=== PATIENT | female | born 1980 | race Two or more races ===

== ENCOUNTER 2025-10-15 11:27 | Inpatient (IN) | payer BC, OTHER ==
[~2025-10-15] VITALS: Ht 154.9 cm; Wt 69.7 kg
[2025-10-15] VITALS (11 sets, daily range): BP systolic 88–113; BP diastolic 48–76; PULSE 74–92; RESP 14–21; TEMP 97.3–98.8; O2SAT 99–100
--- NOTE | 2025-10-15 11:48 | ED.PDOC ---
History of Present Illness HPI Comments 45 y/o F, presents to the ED for CC of abnormal labs. Patient states, she received a critical lab for low Hbg level of 5.7. Patient reports, associated symptoms of weakness [id number]. Patient further comments, on LMP to have been [id number] ago. Patient denies dizziness, blurred vision, or headache with aura. No other symptoms or modifying factors are present at this time. 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 Family History Family History: Unknown Social History Smoker: Non-Smoker Alcohol: Denies ETOH Use Drugs: Denies Drug Use Lives In: Home Constitutional: reports: weakness; denies: chills, diaphoresis, fatigue, fever, malaise, sweats, others EENTM: denies: blurred vision, double vision, ear bleeding, ear discharge, ear drainage, ear pain, ear ringing, eye pain, eye redness, hearing loss, mouth pain, mouth swelling, nasal discharge, nose bleeding, nose congestion, nose pain, photophobia, tearing, throat pain, throat swelling, voice changes, others Respiratory: denies: cough, hemoptysis, orthopnea, SOB at rest, shortness of breath, SOB with excertion, stridor, wheezing, others Cardiovascular: denies: chest pain, dizzy spells, diaphoresis, Dyspnea on exertion, edema, irregular heart beat, left arm pain, lightheadedness, palpitations, PND, syncope, others Gastrointestinal: denies: abdomen distended, abdominal pain, blood streaked bowels, constipated, diarrhea, dysphagia, difficulty swallowing, hematemesis, melena, nausea, poor appetite, poor fluid intake, rectal bleeding, rectal pain, vomiting, others Genitourinary: denies: abnormal vagina bleeding, burning, dyspareunia, dysuria, flank pain, frequency, hematuria, incontinence, pain, , vagina discharge, urgency, others Neurological: denies: dizziness, fainting, headache, left sided numbness, left sided weakness, numbness, paresthesia, pre-existing deficit, right sided nu mbness, right sided weakness, seizure, speech problems, tingling, tremors, weakness, others Musculoskeletal: denies: back pain, gout, joint pain, joint swelling, muscle pain, muscle stiffness, neck pain, others Integumetry: denies: bruises, change in color, change in hair/nails, dryness, laceration, lesions, lumps, rash, wounds, others Allergic/Immunocompromised: denies: Difficulty Healing, Frequent Infections, Hives, Itching, others Hematologic/Lymphatic: denies: anemia, blood clots, easy bleeding, easy bruising, swollen glands, others Endocrine: denies: excessive hunger, excessive sweating, excessive thirst, excessive urination, flushing, intolerance to cold, intolerance to heat, unexplained weight gain, unexplained weight loss, others Psychiatric: denies: anxiety, bipolar disorder, depression, hopeless, panic disorder, schizophrenia, sleepless, suicidal, others All Other Systems: Reviewed and Negative Was a procedure done? Was a procedure done?: No Differential Dx Considerations may include: anemia, iron deficiency X-Ray, Labs, Meds, VS Vital Signs Date Time Temp Pulse Resp B/P (MAP) Pulse Ox O2 Delivery O2 Flow Rate FiO2 10/15/25 11:29 97.5 100 18 118/99 98 97.5 Time of 1ST Reevaluation: 12:15 Reevaluation 1ST: Unchanged Patient Education/Counseling: Diagnosis, Treatment Family Education/Counseling: No Family Present SEPSIS Sepsis Screen Date sepsis recognized/suspect: Oct 15, 2025 Time Sepsis recognized/suspect: 1130 Recent Procedure: No On Antibiotic Therapy: No Respiratory Rate >20: No Heart Rate >90: Yes Temp<36 C (96.8 F) or >38.3 C: No SBP <90 or MAP <65 mmHG: No New Acute Mental Status Change: No Is the patient on CPAP, BIPAP,: No Vital Signs Date Time Temp Pulse Resp B/P (MAP) Pulse Ox O2 Delivery O2 Flow Rate FiO2 10/15/25 11:29 97.5 100 18 118/99 98 97.5 Critical Care Note Critical Care Time?: No Stability Stability form required: No Heart Score Heart Score: Heart Score Response (Comments) Value History N/A 0 EKG N/A 0 Age N/A 0 Risk Factors N/A 0 Troponin N/A 0 Total 0 I personally scribed for LEON BARILLAS MD ([email or web address]) on 10/15/25 at 11:48. Electronically submitted by Sol Akhtar ([email or web address]). I personally scribed for LEON BARILLAS MD ([email or web address]) on 10/15/25 at 11:53. Electronically submitted by Sol Akhtar ([email or web address]). LEON BARILLAS MD Oct 15, 2025 11:48
--- NOTE | 2025-10-15 12:18 | ED.PDOC ---
History of Present Illness HPI Comments This is a 45-year-old woman who presented to the ED with the chief complaint of abnormal labs. She mentioned she received a lab for low hemoglobin level of 5.7, which was drawn yesterday at her PCPs office. The patient reports she has been having menstrual bleeding since the last 1 month with passage of clots, and has had to use 6-7 sanitary pads every day. This has been associated with nausea, dizziness and weakness. She denies any headache, blurred vision or loss of consciousness. 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 Family History Family History: Unknown Social History Smoker: Non-Smoker Alcohol: Denies ETOH Use Drugs: Denies Drug Use Lives In: Home Constitutional: reports: fatigue, malaise, weakness Genitourinary: reports: abnormal vagina bleeding Physical Exam General Appearance: Normal HEENT: Normal ENT Inspection, Pale Conjuntivae (L), Pale Conjuntivae (R) Neck: Normal, Normal Inspection Respiratory: Normal Breath Sounds Cardiovascular: No Edema, No Murmur, Normal Peripheral Pulses Breast Exam: Normal Gastrointestinal: Tenderness (left lower quadrant) Genitalia: Deferred Pelvic: Deferred Rectal: None Extremities: Normal inspection, Normal range of motion, No pedal edema Neurologic: No Motor Deficits, Normal Mood, No Sensory Deficits Cerebellar Function: Normal Reflexes: Normal Skin: Pallor Lymphatic: No Adenopathy Was a procedure done? Was a procedure done?: No Differential Dx Considerations may include: fibroids, endometriosis, endometrial polyps X-Ray, Labs, Meds, VS Vital Signs Date Time Temp Pulse Resp B/P (MAP) Pulse Ox O2 Delivery O2 Flow Rate FiO2 10/15/25 11:29 97.5 100 18 118/99 98 97.5 Time of 1ST Reevaluation: 12:15 Reevaluation 1ST: Unchanged Patient Education/Counseling: Diagnosis, Treatment, Prognosis Family Education/Counseling: No Family Present SEPSIS Sepsis Screen Date sepsis recognized/suspect: Oct 15, 2025 Time Sepsis recognized/suspect: 1130 Recent Procedure: No On Antibiotic Therapy: No Respiratory Rate >20: No Heart Rate >90: Yes Temp<36 C (96.8 F) or >38.3 C: No SBP <90 or MAP <65 mmHG: No New Acute Mental Status Change: No Is the patient on CPAP, BIPAP,: No Physician Orders Complete Blood Count (10/15/25 12:04) PTPTT (10/15/25 12:04) Type And Screen (10/15/25 12:04) Heplock Iv (10/15/25 ) Pelvic (10/15/25 12:04) Test, Urine (10/15/25 12:04) Vital Signs Date Time Temp Pulse Resp B/P (MAP) Pulse Ox O2 Delivery O2 Flow Rate FiO2 10/15/25 11:29 97.5 100 18 118/99 98 97.5 Departure 1 Departure Time of Disposition: 12:15 Impression: Primary Impression: Fibroids Additional Impressions: Abnormal uterine bleeding due to endometrial polyp Endometriosis Disposition: 09 ADMITTED INPATIENT Condition: Stable Critical Care Note Critical Care Time?: No Stability Stability form required: RONALDO Spicer RESIDENT Oct 15, 2025 12:18
[2025-10-15 12:43] LABS: Hematocrit 18.7 % (36.0-46.0); Mean Corpuscular Hemoglobin 20.7 pg (28.0-32.0); Mean Corpuscular Volume 66.6 fL (80.0-100.0); Nucleated Red Blood Cells % 0.1 %
[2025-10-15 12:45] LABS: Hemoglobin 5.8 g/dL (12.2-16.2)
[2025-10-15 12:53] LABS: INR 0.97 (0.9-1.15); Partial Thromboplastin Time 20.5 SEC (24.5-34.5); Prothrombin Time 10.3 sec (9.3-11.8)
--- NOTE | 2025-10-15 13:22 | DVH ---
EXAM DESCRIPTION: TRANSABDOMINAL PELVIC ULTRASOUND CLINICAL HISTORY: menstrual bleeding for 1 month COMPARISON: None TECHNIQUE: Transabdominal ultrasound examination of the pelvis was performed. LMP: 09/15/25 FINDINGS: Uterus: 10.4 X 6.2 X 6.9 Cm. A few uterine fibroids measuring up to 3.3 cm. Endometrial echo complex: 0.8 cm. Right ovary: 3.0 x 2.1 X 2.2 Cm. No right adnexal masses. Normal Doppler flow in the right ovary. Left ovary: 4.9 X 2.8 X 4.5 Cm. 3.7 cm simple left ovarian cyst. Normal Doppler flow on the left ovary. Intrapelvic free fluid: None. IMPRESSION: 1. Uterine fibroids measuring up to 3.3 cm. 2. A 3.7 cm simple left ovarian cyst.
[2025-10-15] MEDS ORDERED: ACETAMINOPHEN 325 MG TAB PO PRN (17:30)
[2025-10-15] MEDS ORDERED: ONDANSETRON HCL 4 MG/2 ML VIAL IV PRN (17:30)
[2025-10-15 17:39] LABS: Hemoglobin 7.5 g/dL (12.2-16.2)
[2025-10-15 17:41] LABS: Hematocrit 23.9 % (36.0-46.0)
--- NOTE | 2025-10-15 17:48 | DVHHP2 ---
History of Present Illness Reason for Visit: Abnormal labs History of Present Illness 45-year-old female presents for evaluation of abnormal blood work. Patient was contacted by her primary care provider and advised to present to the emergency department due to an abnormally low hemoglobin level. Patient reports a one month history of having heavy menstrual bleeding she states using a proximally 6-7 sedentary pads per day. She states that two days ago she was seen by her primary care provider and was given "medication" to slow the bleeding. She reports noticing decrease in bleed since yesterday. Reports dizziness, shortness for breath and extreme fatigue. Past Medical History Denies Past Surgical History Tubal ligation Family History Noncontributory Smoke: No ALCOHOL: none Drugs: None Lives: with Family Review of Systems Review of Systems Review of systems are currently negative otherwise addressed in HPI. Allergies: Coded Allergies: NO KNOWN ALLERGIES (Unverified , 10/15/25) Medications Current Medications Medications Dose Ordered Sig/Regina Route Start Time Stop Time Status Last Admin Dose Admin Ondansetron HCl 4 mg Q4HP PRN IV 10/15/25 17:30 Acetaminophen 650 mg Q6HP PRN PO 10/15/25 17:30 Exam Vital Signs Vital Signs Date Time Temp Pulse Resp B/P (MAP) Pulse Ox O2 Delivery O2 Flow Rate FiO2 10/15/25 17:30 98.0 83 20 96/53 (67) 100 98.0 10/15/25 13:20 Room Air* 0 21 Exam Gen: 45-year-old female in mild distress Skin: Warm, dry, normal color and texture, no rash. HEENT: Normocephalic atraumatic, mucous membranes moist and pink. Neck: Cervical and supraclavicular nodes normal without enlargement, trachea is midline, thyroid gland is normal without masses. Pulmonary: Clear to auscultation and percussion bilaterally. Cardiac: Regular rate and rhythm. No murmur Abdomen: Soft, nontender, nondistended, bowel sounds present all 4 quadrants, no guarding, no rigidity, no organomegaly. Extremities: No cyanosis, clubbing, no edema Neuro: Cranial nerves II through XII grossly intact, normal affect and speech, no focal motor deficits. Labs/Xrays ORDERING PHYSICIAN: RONALDO JENKINS RESIDENT PROCEDURE(s): PELUS - PELVIC REASON: menstrual bleeding for 1 month ORDER NUMBER(s): [id number], ACCESSION NUMBER(s): [id number] EXAM DESCRIPTION: TRANSABDOMINAL PELVIC ULTRASOUND CLINICAL HISTORY: menstrual bleeding for 1 month COMPARISON: None TECHNIQUE: Transabdominal ultrasound examination of the pelvis was performed. LMP: 09/15/25 FINDINGS: Uterus: 10.4 X 6.2 X 6.9 Cm. A few uterine fibroids measuring up to 3.3 cm. Endometrial echo complex: 0.8 cm. Right ovary: 3.0 x 2.1 X 2.2 Cm. No right adnexal masses. Normal Doppler flow in the right ovary. Left ovary: 4.9 X 2.8 X 4.5 Cm. 3.7 cm simple left ovarian cyst. Normal Doppler flow on the left ovary. Intrapelvic free fluid: None. IMPRESSION: 1. Uterine fibroids measuring up to 3.3 cm. 2. A 3.7 cm simple left ovarian cyst. Labs Test 10/15/25 17:23 10/15/25 12:29 Range/Units Hemoglobin 7.5 #L 12.2-16.2 g/dL Hematocrit 23.9 #L 36.0-46.0 % White Blood Count 6.0 4.4-10.8 10^3/uL Red Blood Count 2.81 L 4.0-5.20 10^6/uL Mean Corpuscular Volume 66.6 L 80.0-100.0 fL Mean Corpuscular Hemoglobin 20.7 L 28.0-32.0 pg Mean Corpuscular Hemoglobin Concent 31.1 L 32.0-36.0 g/dL Red Cell Distribution Width 17.3 H 11.8-14.3 % Platelet Count 503 H 140-450 10^3/uL Mean Platelet Volume 6.8 L 6.9-10.8 fL Neutrophils (%) (Auto) 68.6 37.0-80.0 % Lymphocytes (%) (Auto) 21.4 10.0-50.0 % Monocytes (%) (Auto) 7.9 0.0-12.0 % Eosinophils (%) (Auto) 1.0 0.0-7.0 % Basophils (%) (Auto) 1.1 0.0-2.0 % Neutrophils # (Auto) 4.1 1.6-8.6 10 ^3/uL Lymphocytes # (Auto) 1.3 0.4-5.4 10 ^3/uL Monocytes # (Auto) 0.5 0-1.3 10 ^3/uL Eosinophils # (Auto) 0.1 0-0.8 10 ^3/uL Basophils # (Auto) 0.1 0-0.2 10 ^3/uL Nucleated Red Blood Cells 0.1 % Prothrombin Time 10.3 9.3-11.8 sec Prothrombin Time INR 0.97 0.9-1.15 Activated Partial Thromboplast Time 20.5 L 24.5-34.5 SEC SEPSIS Sepsis Screen Date sepsis recognized/suspect: Oct 15, 2025 Time Sepsis recognized/suspect: 1319 Recent Procedure: No On Antibiotic Therapy: No Respiratory Rate >20: No Heart Rate >90: No Temp<36 C (96.8 F) or >38.3 C: No SBP <90 or MAP <65 mmHG: No New Acute Mental Status Change: No Is the patient on CPAP, BIPAP,: No Physician Orders Type And Screen (10/15/25 12:04) Heplock Iv (10/15/25 ) Pelvic (10/15/25 12:04) Test, Urine (10/15/25 12:04) Obtain Consent For: (10/15/25 12:57) Administer Blood Products UD (10/15/25 12:57) * Costume Shop Coordinator Consultation (10/15/25 17:20) Regular Diet (10/15/25 Dinner) Admit (10/15/25 17:20) Ondansetron Hcl (Zofran) (10/15/25 17:30) Complete Blood Count (10/16/25 04:00) Condition: Stable (10/15/25 17:20) Acetaminophen Tablet (Tylenol Tablet) (10/15/25 17:30) Bedrest With Bathroom Privileg (10/15/25 17:20) Vital Signs Date Time Temp Pulse Resp B/P (MAP) Pulse Ox O2 Delivery O2 Flow Rate FiO2 10/15/25 17:30 98.0 83 20 96/53 (67) 100 98.0 10/15/25 16:55 98.5 80 19 108/59 98.5 10/15/25 16:40 98.4 78 21 105/63 98.4 10/15/25 16:40 71 18 105/63 (77) 100 10/15/25 16:00 78 10/15/25 15:15 98.2 78 18 104/63 98.2 10/15/25 14:55 98.5 76 15 88/48 98.5 10/15/25 14:35 98.4 81 19 105/60 98.4 10/15/25 13:20 97.7 74 17 92/53 (66) 100 97.7 10/15/25 13:20 74 17 100 Room Air* 0 21 10/15/25 13:06 98.2 82 14 112/72 (85) 100 98.2 10/15/25 11:29 97.5 100 18 118/99 98 97.5 Laboratory Tests Test 10/15/25 12:29 White Blood Count 6.0 10^3/uL (4.4-10.8) Assessment/Plan Assessment/Plan Assessment Symptomatic anemia Vaginal bleeding Uterine fibroids Plan Admit the patient to [facility] to the hospitalist Transfuse 2 units of packed red cells OBGYN consultation Continue treatment per orders. Plan discussed with: Patient My Orders Orders - SOHEILA TURNER Procedure Category Date Status Time * Costume Shop Coordinator Consultation CONS 10/15/25 Transmitted 17:20 Regular Diet DIET 10/15/25 Transmitted Dinner Admit ADMIT 10/15/25 Transmitted 17:20 Ondansetron Hcl PHA 10/15/25 In Process (Zofran) 17:30 Complete Blood Count LAB 10/16/25 Verified 04:00 Condition: Stable GENIA 10/15/25 In Process 17:20 Acetaminophen Tablet PHA 10/15/25 In Process (Tylenol Tablet) 17:30 Bedrest With Bathroom GENIA 10/15/25 In Process Privileg 17:20 Date of Service: Oct 15, 2025 Billing Provider: SOHEILA TURNER Common Visit Codes: [id number] INP/OBS CARE (MOD) SOHEILA TURNER Oct 15, 2025 17:48
[2025-10-16 01:00] VITALS: BP 101/61; PULSE 77; RESP 18; TEMP 98.6; O2SAT 98
[2025-10-16 05:00] VITALS: BP 106/74; PULSE 74; RESP 17; TEMP 98.2; O2SAT 98
[2025-10-16 05:55] LABS: Hemoglobin 9.0 g/dL (12.2-16.2)
[2025-10-16 05:58] LABS: Hematocrit 27.5 % (36.0-46.0); Mean Corpuscular Hemoglobin 23.9 pg (28.0-32.0); Mean Corpuscular Volume 72.6 fL (80.0-100.0); Nucleated Red Blood Cells % 0.4 %
[2025-10-16 08:00] VITALS: PULSE 77; RESP 16; O2SAT 98
[2025-10-16 09:00] VITALS: BP 100/64; PULSE 77; RESP 16; TEMP 98.3; O2SAT 98
--- NOTE | 2025-10-16 09:26 | DVHINCON2 ---
Date of service: Oct 16, 2025 Referring Physician hospitalist Reason for Consultation menorrhagia with anemia History of Present Illness pt is ADMITTED FOR MENORRHAGIA WITH ANEMIA .PT REPORTS HEAVY BLEEDING X8D PER MONTH. HER LAST PAP WAS 2 YRS AGO AND LAST MAMMO WAS 2 YRS AGO Past Medical History NA Past Surgical History TUBAL LIGATION Family History NA Social History 4 Patient Family History: Patient reports no known family medical history. Allergies: Coded Allergies: NO KNOWN ALLERGIES (Unverified , 10/15/25) Current Medications Current Medications Medications (Trade) Dose Ordered Sig/Regina Route PRN Reason Start Time Stop Time Status Last Admin Ondansetron HCl (Zofran) 4 mg Q4HP PRN IV NAUSEA / VOMITING 10/15/25 17:30 Acetaminophen (Tylenol Tablet) 650 mg Q6HP PRN PO PAIN SCALE 1-3 OR TEMP>100.4 10/15/25 17:30 Review of Systems Constitutional: no fever, chill, weight loss HEENT: no eye pain, no hearing loss, no oral lesion, no scleral icterus Heart: no chest pain, no chest pressure Lung: no cough, no dyspnea with exertion Abdomen: see HPI : no pain with urination, normal appearing urine Musculoskeletal: no joint pain, no muscle pain Neurological: no seizure, no loss of sensation, no weakness in extremities Pysch: no depression, no anxiety Derm: no rash, no jaundice Vital Signs Vital Signs Date Time Temp Pulse Resp B/P (MAP) Pulse Ox O2 Delivery O2 Flow Rate FiO2 10/16/25 09:00 98.3 77 16 100/64 (76) 98 98.3 10/15/25 23:45 Room Air* 0 21 Physical Exam SKIN: [NL] HEENT: [PALE CONJUCTIVAE] NECK: [NL] CARDIAC: [RRR] PULMONARY: [CTA] ABDOMEN: [SOFT,NT] PRLVIC- VAG NL,CX NL,UTERUS 10 WKS SIZE,ADENXA NT EXT -NO CCE Labs/Diagnostic Data Labs Test 10/16/25 04:50 10/15/25 12:29 Range/Units White Blood Count 5.3 4.4-10.8 10^3/uL Red Blood Count 3.79 L 4.0-5.20 10^6/uL Hemoglobin 9.0 #L 12.2-16.2 g/dL Hematocrit 27.5 #L 36.0-46.0 % Mean Corpuscular Volume 72.6 #L 80.0-100.0 fL Mean Corpuscular Hemoglobin 23.9 L 28.0-32.0 pg Mean Corpuscular Hemoglobin Concent 32.9 32.0-36.0 g/dL Red Cell Distribution Width 21.0 H 11.8-14.3 % Platelet Count 451 H 140-450 10^3/uL Mean Platelet Volume 7.1 6.9-10.8 fL Neutrophils (%) (Auto) 58.8 37.0-80.0 % Lymphocytes (%) (Auto) 29.5 10.0-50.0 % Monocytes (%) (Auto) 8.5 0.0-12.0 % Eosinophils (%) (Auto) 1.8 0.0-7.0 % Basophils (%) (Auto) 1.4 0.0-2.0 % Neutrophils # (Auto) 3.1 1.6-8.6 10 ^3/uL Lymphocytes # (Auto) 1.6 0.4-5.4 10 ^3/uL Monocytes # (Auto) 0.5 0-1.3 10 ^3/uL Eosinophils # (Auto) 0.1 0-0.8 10 ^3/uL Basophils # (Auto) 0.1 0-0.2 10 ^3/uL Nucleated Red Blood Cells 0.4 % Prothrombin Time 10.3 9.3-11.8 sec Prothrombin Time INR 0.97 0.9-1.15 Activated Partial Thromboplast Time 20.5 L 24.5-34.5 SEC Primary Diagnosis MENORRHAGIA WITH ANEMIA Plan PT IS CURRENTLY NOT BLEEDING,SHE RECIEVED 2U PRBC. SHE NEEDS TO FU AFTER DC FOR PAP,MAMMO,EMB AND WILL BE SCHED FOR ENDOMETRIAL ABLATION IZABELLA;L SIGN OFF THANK YOU Plan discussed with: Patient Visit Coding OBGYN Date of Service: Oct 16, 2025 Billing Provider: EVITA DAVIS DO BEHAVIORAL SCIENTIST Common Visit Codes: [id number] INP/OBS CARE (HIGH) BEHAVIORAL SCIENTIST Consultation Codes: 44732-T/U INPATIENT CONSULT (HIGH) EVITA DAVIS DO Oct 16, 2025 09:26
[2025-10-16 13:00] VITALS: BP 107/68; PULSE 69; RESP 18; TEMP 98.3; O2SAT 98
--- NOTE | 2025-10-16 15:49 | DVHDS2 ---
Discharge Summary Date of Admission Oct 15, 2025 at 17:20 Date of Discharge: Oct 16, 2025 Labs/Diagnostic Data: Laboratory Results Test 10/16/25 04:50 10/15/25 12:29 White Blood Count 5.3 10^3/uL (4.4-10.8) Red Blood Count 3.79 10^6/uL (4.0-5.20) Hemoglobin 9.0 g/dL (12.2-16.2) Hematocrit 27.5 % (36.0-46.0) Mean Corpuscular Volume 72.6 fL (80.0-100.0) Mean Corpuscular Hemoglobin 23.9 pg (28.0-32.0) Mean Corpuscular Hemoglobin Concent 32.9 g/dL (32.0-36.0) Red Cell Distribution Width 21.0 % (11.8-14.3) Platelet Count 451 10^3/uL (140-450) Mean Platelet Volume 7.1 fL (6.9-10.8) Neutrophils (%) (Auto) 58.8 % (37.0-80.0) Lymphocytes (%) (Auto) 29.5 % (10.0-50.0) Monocytes (%) (Auto) 8.5 % (0.0-12.0) Eosinophils (%) (Auto) 1.8 % (0.0-7.0) Basophils (%) (Auto) 1.4 % (0.0-2.0) Neutrophils # (Auto) 3.1 10 ^3/uL (1.6-8.6) Lymphocytes # (Auto) 1.6 10 ^3/uL (0.4-5.4) Monocytes # (Auto) 0.5 10 ^3/uL (0-1.3) Eosinophils # (Auto) 0.1 10 ^3/uL (0-0.8) Basophils # (Auto) 0.1 10 ^3/uL (0-0.2) Nucleated Red Blood Cells 0.4 % Prothrombin Time 10.3 sec (9.3-11.8) Prothrombin Time INR 0.97 (0.9-1.15) Activated Partial Thromboplast Time 20.5 SEC (24.5-34.5) Other Laboratory Tests 10/16/25 04:50 Discharge Disposition: Home Discharge Instruct/Medications Diet: Cardiac 2g Na,low cholest Activity: No Restrictions, As Tolerated Discharge Statement: "Patient was advised to return to the ER or call 911 if any headaches, dizziness, shortness of breath, chest pain, abdominal pain, bleeding, fevers, or worsening of medical condition. Patient was counseled about treatment plan, medications, possible side effects, patientverbalized understanding. All questions were answered to the best of my ability. This discharge took greater then 30 minutes in planning, reviewing documentation, counseling the patient, and discussing with other team members." ASSESSMENT ASSESSMENT Assessment Date of Service: Oct 16, 2025 Billing Provider: JAJA SAMANIEGO DO Common Visit Codes: 56574-DLX/OBS DISCH DAY >30min JAJA SAMANIEGO DO Oct 16, 2025 15:49
[2025-10-16 17:00] VITALS: BP 116/74; PULSE 74; RESP 18; TEMP 97.9; O2SAT 100
== END 2025-10-16 18:06 | disposition home or self-care (01) | DRG 812 ==
LOC: ER 11:27 → OVERFLOW 17:20 → CENTRAL 17:27
PROVIDERS: ADMIT Internal Medicine; ATTEND Internal Medicine
PROC: 30233N1 Transfusion of Nonautologous Red Blood Cells into Peripheral Vein, Percutaneous Approach (ICD-10-PCS; principal; 2025-10-15)
DX: D64.9 Anemia, unspecified (principal); D25.9 Leiomyoma of uterus, unspecified; N92.0 Excessive and frequent menstruation with regular cycle; Z98.51 Tubal ligation status
CPT/HCPCS: 36415; 36430; 76856; 85014; 85018; 85025; 85610; 85730; 86850; 86900; 86901; 86920; G0378